=== PATIENT | male | born 1980 | race Caucasian/White ===

== ENCOUNTER 2021-06-04 09:46 | Emergency (ER) | payer SELFPAY ==
[~2021-06-04] VITALS: Ht 188 cm; Wt 149.7 kg
[2021-06-04] MEDS ORDERED: KETOROLAC 30MG VIAL (30MG/ML) ONE (10:48)
[2021-06-04] MEDS ORDERED: ONDANSETRON 4MG INJ ONE (10:48)
[2021-06-04] MEDS ORDERED: ONDANSETRON 4MG INJ IVP SCH (11:00)
[2021-06-04] MEDS ORDERED: KETOROLAC 30MG VIAL (30MG/ML) IVP SCH (11:00)
[2021-06-04] MEDS ORDERED: 0.9%NACL 1000ML 1,000 ML IV SCH (11:00)
[2021-06-04 11:33] LABS: APPEARANCE,URINE Cloudy (CLEAR); BILIRUBIN,URINE Negative (NEGATIVE); COLOR,URINE Yellow (YELLOW); GLUCOSE, URINE (UA) Negative (NEGATIVE); KETONES,URINE Negative (NEGATIVE); LEUKOCYTE ESTERASE ,URINE Moderate (NEGATIVE); NITRATE,URINE Negative (NEGATIVE); OCCULT BLOOD,URINE Large (NEGATIVE); PROTEIN,URINE Trace mg/dL (NEGATIVE); UROBILINOGEN,URINE 0.2 mg/dL (0.2-1.0)
[2021-06-04 11:33] LABS: BASOPHILS % (AUTO) 0.8 % (0.0-5.0); EOSINOPHILS % (AUTO) 4.3 % (0.0-8.0); HEMATOCRIT 37.7 % (42-54); LYMPHOCYTES % (AUTO) 23.4 % (21.0-51.0); MEAN CORPUSCULAR HEMOGLOBIN 30.5 pg (27.0-33.0); MEAN CORPUSCULAR HGB CONC 34.7 g/dL (32.0-36.0); MEAN CORPUSCULAR VOLUME 87.9 fL (79-99); MONOCYTES % (AUTO) 8.6 % (3.0-13.0); NEUTROPHILS % (AUTO) 62.5 % (40.0-77.0); PLATELET COUNT (AUTO) 228 K/uL (130-400); RED BLOOD CELL COUNT(AUTO) 4.29 MIL/uL (4.50-6.20); WHITE BLOOD COUNT (AUTO) 8.5 K/uL (4.8-10.8)
[2021-06-04 11:45] LABS: ALBUMIN 3.4 g/dL (3.5-5.0); BILIRUBIN,TOTAL 0.5 mg/dL (0.2-1.0); CREATININE 1.3 mg/dL (0.5-1.5); TOTAL PROTEIN, SERUM 7.2 g/dL (6.0-8.3)
[2021-06-04 12:08] LABS: BACTERIA,URINE Rare /HPF (None Seen); RBC,URINE 0-1 /HPF (0-1); SQUAMOUS EPITHELIAL CELL,UR Rare /HPF (0-2)
[2021-06-04] MEDS ORDERED: TAMS-1 PO (13:06)
[2021-06-04] MEDS ORDERED: ONDA4TAB4 PO (13:06)
[2021-06-04] MEDS ORDERED: HYDR-4068 PO (13:06)
[2021-06-04 13:13] VITALS: BP 150/94
== END 2021-06-04 13:22 | disposition home or self-care (01) ==
LOC: EDH 09:46
DX: N20.1 Calculus of ureter (principal); R11.10 Vomiting, unspecified; I10 Essential (primary) hypertension; E11.9 Type 2 diabetes mellitus without complications; Z79.1 Long term (current) use of non-steroidal anti-inflammatories (NSAID); Z79.899 Other long term (current) drug therapy
CPT/HCPCS: 36415; 74176; 80053; 81001; 83690; 85025; 87088; 96361; 96374; 96375; 99284; J1885; J2405

== ENCOUNTER 2023-01-13 12:40 | Inpatient (IN) | payer BC, OTHER ==
[~2023-01-13] VITALS: Ht 185.4 cm; Wt 154.2 kg
[~2023-01-13 12:40] MED LIST: HYDR-4068 PO; ONDA4TAB4 PO; TAMS-1 PO
[2023-01-13] MEDS ORDERED: 0.9%NACL 1000ML 1,000 ML IV ONE ×2 (13:00→16:30)
[2023-01-13] MEDS ORDERED: PANTOPRAZOLE 40 MG/VIAL IVP ONE (13:00)
[2023-01-13] MEDS ORDERED: KETOROLAC 15MG/ML VIAL (15MG/ML) IV ONE (13:00)
[2023-01-13] MEDS ORDERED: ONDANSETRON 4MG INJ IVP ONE (13:00)
[2023-01-13] MEDS ORDERED: MORPHINE 4 MG SYG IVP ONE (13:00)
[2023-01-13 13:05] LABS: APPEARANCE,URINE CLOUDY (CLEAR); BILIRUBIN,URINE SMALL mg/dL (NEGATIVE); COLOR,URINE BROWN (YELLOW); GLUCOSE, URINE (UA) NEGATIVE (NEGATIVE); KETONES,URINE NEGATIVE (NEGATIVE); LEUKOCYTE ESTERASE ,URINE TRACE Leu/uL (NEGATIVE); NITRATE,URINE POSITIVE (NEGATIVE); OCCULT BLOOD,URINE LARGE (NEGATIVE); PH,URINE 5.5 (5.0-8.0); PROTEIN,URINE 100 mg/dL (NEGATIVE)
[2023-01-13 13:33] LABS: BACTERIA,URINE Moderate /HPF (None Seen); RBC,URINE 51-100 /HPF (0-1)
[2023-01-13 13:34] LABS: SQUAMOUS EPITHELIAL CELL,UR None Seen /HPF (0-2)
[2023-01-13 13:38] LABS: BASOPHILS % (AUTO) 1.1 % (0.0-5.0); EOSINOPHILS % (AUTO) 5.7 % (0.0-8.0); HEMATOCRIT 40.4 % (42-54); LYMPHOCYTES % (AUTO) 23.2 % (21.0-51.0); MEAN CORPUSCULAR HEMOGLOBIN 30.1 pg (27.0-33.0); MEAN CORPUSCULAR HGB CONC 34.7 g/dL (32.0-36.0); MEAN CORPUSCULAR VOLUME 86.9 fL (79-99); MONOCYTES % (AUTO) 6.2 % (3.0-13.0); NEUTROPHILS % (AUTO) 63.5 % (40.0-77.0); PLATELET COUNT (AUTO) 249 K/uL (130-400); RED BLOOD CELL COUNT(AUTO) 4.65 MIL/uL (4.50-6.20); RED CELL DISTRIBUTION WIDTH 11.9 % (11.0-15.5); WHITE BLOOD COUNT (AUTO) 10.1 K/uL (4.8-10.8)
[2023-01-13 13:48] LABS: CARBON DIOXIDE 25 mmol/L (21-32); CHLORIDE 103 mmol/L (101-111); CREATININE 1.2 mg/dL (0.5-1.5); GLOMERULAR FILTR. RATE CALC 78 mL/min (>90); GLUCOSE,RANDOM 129 mg/dL (70-105); POTASSIUM 3.3 mmol/L (3.5-5.1); SODIUM SERUM 138 mmol/L (136-145); UREA NITROGEN, BLOOD 17 mg/dL (7-18)
[2023-01-13 13:53] LABS: ALANINE AMINOTRANSFERASE 45 U/L (12-78); ALBUMIN 3.9 g/dL (3.5-5.0); ASPARTATE AMINOTRANSFERASE 20 U/L (10-37); LIPASE < 50 U/L (114-286); TOTAL PROTEIN, SERUM 7.7 g/dL (6.0-8.3)
[2023-01-13] MEDS ORDERED: ZOSYN 3.375GM+NS 50ML 50 ML IVPB STA (14:00)
[2023-01-13] MEDS ORDERED: ZOSYN 3.375GM+NS 50ML 50 ML IVPB ONE (14:02)
[2023-01-13] MEDS ORDERED: HYDRALAZINE 20MG/ML VIAL IV ONE ×2 (14:30)
[2023-01-13] MEDS ORDERED: HYDRALAZINE 20MG/ML VIAL IV PRN (16:30)
[2023-01-13] MEDS: KETOROLAC 15MG/ML VIAL (15MG/ML) IV PRN (16:34)
[2023-01-13 16:49] LABS: INR 1.01 (0.85-1.15)
[2023-01-13 16:51] LABS: PARTIAL THROMBOPLASTIN TIME 29.9 SEC (26.3-35.5)
[2023-01-13] MEDS ORDERED: LOSARTAN 50 MG TABLET ONE (16:52)
[2023-01-13 16:57] LABS: HEMOGLOBIN A1C 7.8 % (4.0-6.0)
[2023-01-13] MEDS ORDERED: LOSARTAN 50 MG TABLET PO SCH (17:00)
[2023-01-13] MEDS: MORPHINE 2 MG SYG IVP PRN (19:54)
[2023-01-13] MEDS: FAMOTIDINE 20MG VIAL IV SCH (20:34)
[2023-01-13] MEDS: ZOSYN 3.375GM+NS 50ML 50 ML IVPB SCH (20:34)
[2023-01-13] MEDS ORDERED: TAMSULOSIN HCL 0.4 MG CAP.ER.24H PO SCH (21:00)
[2023-01-13 21:50] VITALS: BP 153/95
[2023-01-13] MEDS ORDERED: 0.9%NACL 50ML IV SCH (22:00)
[2023-01-13] MEDS ORDERED: ZOSYN 3.375GM +NS 50ML IVPB SCH (22:00)
[2023-01-14] VITALS: BP 170/97
[2023-01-14] MEDS: KETOROLAC 15MG/ML VIAL (15MG/ML) IV PRN (02:41)
[2023-01-14 04:00] VITALS: BP 177/97
[2023-01-14] MEDS: ZOSYN 3.375GM+NS 50ML 50 ML IVPB SCH ×2 (04:32→13:53)
[2023-01-14] MEDS: INSULIN HUMULIN R 100 UNIT/ML 3ML SQ SCH ×3 (06:08→17:01)
[2023-01-14 07:53] LABS: EOSINOPHILS % (AUTO) 6.9 % (0.0-8.0); HEMATOCRIT 40.6 % (42-54); LYMPHOCYTES % (AUTO) 25.1 % (21.0-51.0); MEAN CORPUSCULAR HEMOGLOBIN 30.5 pg (27.0-33.0); MEAN CORPUSCULAR HGB CONC 34.5 g/dL (32.0-36.0); MEAN CORPUSCULAR VOLUME 88.5 fL (79-99); MONOCYTES % (AUTO) 5.9 % (3.0-13.0); NEUTROPHILS % (AUTO) 60.9 % (40.0-77.0); PLATELET COUNT (AUTO) 232 K/uL (130-400); RED BLOOD CELL COUNT(AUTO) 4.59 MIL/uL (4.50-6.20); RED CELL DISTRIBUTION WIDTH 12.1 % (11.0-15.5); WHITE BLOOD COUNT (AUTO) 8.3 K/uL (4.8-10.8)
[2023-01-14 08:00] VITALS: BP 194/89
[2023-01-14] MEDS ORDERED: KCL 20 MEQ ERTAB PO PRN (08:00)
[2023-01-14] MEDS ORDERED: POTASSIUM CHLORIDE 20MEQ/100ML 100 ML IV PRN (08:00)
[2023-01-14] MEDS ORDERED: POTASSIUM CHLORIDE 10% ELIXIR 20 MEQ/15 ML UDCUP PO PRN (08:00)
[2023-01-14] MEDS ORDERED: MAGNESIUM 2GM PREMIX 50ML 50 ML IV PRN (08:00)
[2023-01-14] MEDS: FAMOTIDINE 20MG VIAL IV SCH (08:14)
[2023-01-14 08:15] LABS: CREATININE 1.3 mg/dL (0.5-1.5); POTASSIUM 3.7 mmol/L (3.5-5.1)
[2023-01-14] MEDS ORDERED: AMLODIPINE 5 MG TAB PO SCH (09:00)
[2023-01-14] MEDS ORDERED: LOSARTAN 50 MG TABLET PO SCH ×2 (10:30→21:00)
[2023-01-14] MEDS: MORPHINE 2 MG SYG IVP PRN ×2 (11:12→18:24)
[2023-01-14] MEDS: ONDANSETRON 4MG INJ IVP PRN ×2 (11:38→18:24)
[2023-01-14 12:00] VITALS: BP 184/94
[2023-01-14 13:53] LABS: AMPHET/METH SCREEN,URINE NEGATIVE (NEGATIVE); BARBITURATE SCREEN, URINE NEGATIVE (NEGATIVE); BENZODIAZEPINES SCREEN,URINE NEGATIVE (NEGATIVE); CANNABINOID SCREEN,URINE POSITIVE (NEGATIVE); COCAINE SCREEN,URINE NEGATIVE (NEGATIVE); OPIATE SCREEN,URINE NEGATIVE (NEGATIVE); PHENCYCLIDINE SCREEN,URINE NEGATIVE (NEGATIVE)
[2023-01-14] MEDS ORDERED: METOPROLOL TARTRATE 1 MG/ML 5ML VIAL IV PRN (15:00)
[2023-01-14 16:00] VITALS: BP 177/90
[2023-01-14 19:55] VITALS: BP 172/104
== END 2023-01-14 20:50 | disposition left against medical advice (07) | DRG 690 ==
LOC: EDH 12:40 → EDHIP 16:15 → 4CH 20:53
PROVIDERS: ADMIT Hospitalist; ATTEND Hospitalist
DX: N13.6 Pyonephrosis (principal); Z68.41 Body mass index [BMI] 40.0-44.9, adult; E11.9 Type 2 diabetes mellitus without complications; I16.0 Hypertensive urgency; E78.5 Hyperlipidemia, unspecified; I10 Essential (primary) hypertension; Z53.29 Procedure and treatment not carried out because of patient's decision for other reasons; E66.01 Morbid (severe) obesity due to excess calories; Z79.899 Other long term (current) drug therapy; Z87.442 Personal history of urinary calculi; Z88.5 Allergy status to narcotic agent
CPT/HCPCS: 36415; 71045; 74018; 74176; 76100; 78700; 80048; 80053; 80305; 81001; 82948; 83036; 83690; 84443; 85025; 85610; 85730; 87040; 87088; 93005; A9562; C9113; G0378; J0360; J1815; J1885; J2270; J2405; J2543; J3490; J7030